=== PATIENT | male | born 1950 | race Caucasian/White ===

== ENCOUNTER 2024-04-15 08:22 | Day surgery (SDC) | payer MEDICARE, BC ==
[2024-04-11 14:28] LABS: BASOPHILS % (AUTO) 0.1 % (0-1); EOSINOPHILS % (AUTO) 0.1 % (0-6); LYMPHOCYTES # (AUTO) 0.5 X10'3 (1.1-4.8); LYMPHOCYTES % (AUTO) 3.9 % (21-51); MEAN CORPUSCULAR HEMOGLOBIN 29.1 PG (27.0-31.0); MEAN CORPUSCULAR HGB CONC 33.8 g/dL (33.0-36.5); MEAN CORPUSCULAR VOLUME 86.2 FL (78-98); MEAN PLATELET VOLUME 8.3 FL (7.4-10.4); MONOCYTES # (AUTO) 0.2 X10'3 (0-0.9); MONOCYTES % (AUTO) 1.2 % (2-12); NEUTROPHILS # (AUTO) 12.6 X10'3 (1.8-7.7); NEUTROPHILS % (AUTO) 94.7 % (42-75); PRE OP HEMATOCRIT 47.2 % (42.0-52.0); PRE OP PLATELET COUNT 320 X10'3 (140-440); PRE OP WHITE BLOOD COUNT 13.3 10'3 (4.8-10.8); RED BLOOD COUNT 5.48 X10'6 (4.70-6.10); RED CELL DISTRIBUTION WIDTH 14.3 % (11.5-14.5)
[2024-04-11 14:45] LABS: ALBUMIN 3.9 G/DL (3.4-5.0); ALBUMIN/GLOBULIN RATIO 1.1 (1.1-1.5); ALKALINE PHOSPHATASE 71 IU/L (46-116); BLOOD UREA NITROGEN 13 MG/DL (7-18); BUN/CREATININE RATIO 17.8 (10.0-20.0); CALCIUM 9.6 MG/DL (8.5-10.1); CHLORIDE 99 MMOL/L (99-107); CREATININE 0.73 MG/DL (0.60-1.10); PRE OP ALT 30 U/L (30-65); PRE OP ANION GAP 11 (8-16); PRE OP AST 22 U/L (10-37); PRE OP BILIRUB, TOTAL 0.6 MG/DL (0.0-1.0); PRE OP GLUCOSE 138 MG/DL (70-104); PRE OP POTASSIUM 4.7 MMOL/L (3.4-5.1); PRE OP SODIUM 133 MMOL/L (135-145); TOTAL CARBON DIOXIDE 23.3 MMOL/L (24-32); TOTAL PROTEIN 7.4 G/DL (6.4-8.2); eGFR > 90 ML/MIN
[~2024-04-15] VITALS: Ht 185.4 cm; Wt 69.4 kg
[2024-04-15] VITALS (7 sets, daily range): BP systolic 130–148; BP diastolic 66–88; PULSE 53–71; RESP 10–16; TEMP 98.2; O2SAT 96–100
[~2024-04-15 08:22] MED LIST: ALBU2.5V13 NEB; ALBU8HFA; AMLO2.5T2 PO; ASPI-611 PO; FLUT16SP26 BOTHNARES; FLUT1BLS16 INH; FLUT1BLS4; LORA10TA7 PO; LOSA50TA64 PO; MAGN250T11 PO; MULT-1249 PO; PRED20TA PO; famotidine 20mg tablet PO ONE; ringers solution, lacted 1,000 ML IV SCH
[2024-04-15] MEDS ORDERED: meperidine/PF 25mg/ml syringe IV PRN ×2 (09:15)
[2024-04-15] MEDS ORDERED: labetalol 20mg/4ml (5mg/ml) syringe IV PRN (09:15)
[2024-04-15] MEDS ORDERED: ringers solution, lacted 1,000 ML IV SCH (09:15)
[2024-04-15] MEDS ORDERED: ondansetron/PF 4mg/2ml inj IV PRN (09:15)
[2024-04-15] MEDS ORDERED: sevoflurane 250ml liquid IH ONE (10:40)
[2024-04-15] MEDS ORDERED: midazolam 1 mg/ML 2ml injection ONE (10:41)
[2024-04-15] MEDS ORDERED: LIDOcaine 2% (20mg/ml) 5ml vial ONE (10:41)
[2024-04-15] MEDS ORDERED: rocuronium 10mg/ml inj IV ONE (10:41)
[2024-04-15] MEDS ORDERED: propofol inj 20 ML IV ONE (10:41)
[2024-04-15] MEDS ORDERED: fentaNYL/PF 50MCG/1 ML 2ML syringe ONE (10:41)
[2024-04-15] MEDS ORDERED: ondansetron/PF 4mg/2ml inj ONE (10:57)
[2024-04-15] MEDS ORDERED: dexamethasone sod phosphate 4mg/ml inj. ONE (10:57)
== END 2024-04-15 12:54 | disposition home or self-care (01) ==
LOC: PAS 08:22
PROVIDERS: ATTEND Internal Medicine Critical Care Medicine
DX: R91.8 Other nonspecific abnormal finding of lung field (principal); I10 Essential (primary) hypertension; J43.9 Emphysema, unspecified; F41.9 Anxiety disorder, unspecified; Z79.899 Other long term (current) drug therapy; Z98.890 Other specified postprocedural states; Z79.82 Long term (current) use of aspirin; Z72.89 Other problems related to lifestyle
CPT/HCPCS: 31624; 31627; 31628; 31629; 31653; 36415; 71250; 80053; 82948; 85025; 87015; 87070; 87116; 87206; 93005; 94760; A4618; J1100; J2003; J2250; J2371; J2405; J2704; J2710; J3010; J3490; J7120; Z7506; Z7508; Z7512; Z7610; 31622; 31625; 31626; 31654; 88173; 88305